=== PATIENT | female | born 1980 | race Caucasian/White ===

== ENCOUNTER 2017-11-03 22:28 | Emergency (ER) | payer SELFPAY ==
[~2017-11-03] VITALS: Ht 162.6 cm; Wt 63.5 kg
[2017-11-03 22:30] VITALS: BP 120/76
--- NOTE | 2017-11-03 22:39 | NUR ---
PATIENT PRESENTS TO ED WITH FLANK AND ABDOMINAL PAIN X4 DAYS. PT STATES N/V; SKIN IS PINK/WARM/DRY; AAOX4 WITH EVEN AND STEADY GAIT; LUNGS CLEAR BL; HR EVEN AND REGULAR; PT DENIES ANY CP, SOB, OR COUGH AT THIS TIME; PATIENT STATES PAIN OF 7/10 AT THIS TIME; VSS; PATIENT POSITIONED FOR COMFORT; HOB ELEVATED; BEDRAILS UP X1; BED DOWN. ER MD MADE AWARE OF PT STATUS.
[2017-11-03] MEDS ORDERED: KETOROLAC 60 MG/2 ML VIAL IM ONE (23:55)
--- NOTE | 2017-11-03 23:59 | NUR ---
PT TAKEN FOR CT VIA WHEEL CHAIR
[2017-11-04 00:35] VITALS: BP 120/76
--- NOTE | 2017-11-04 00:45 | NUR ---
Patient discharged with v/s stable. Written and verbal after care instructions given and explained. Patient alert, oriented and verbalized understanding of instructions. Ambulatory with steady gait. All questions addressed prior to discharge. ID band removed. Patient advised to follow up with PMD. Rx of MACROBID, LACTULOSE given. Patient educated on indication of medication including possible reaction and side effects. Opportunity to ask questions provided and answered.
== END 2017-11-04 00:45 | disposition home or self-care (01) ==
LOC: MED 22:28
DX: K59.00 Constipation, unspecified (principal); N39.0 Urinary tract infection, site not specified; F12.10 Cannabis abuse, uncomplicated
CPT/HCPCS: 74022; 96372; 99284; J1885